=== PATIENT | male | born 1975 | race Caucasian/White ===

== ENCOUNTER 2019-03-17 16:19 | Emergency (ER) | payer BC ==
--- NOTE | 2019-03-17 16:30 | EDM.PDOC ---
ED HPI GENERAL MEDICAL PROBLEM - General Stated Complaint: TOOTHACHE Time Seen by Provider: 03/17/19 16:29 Source of Information: Reports: Patient - History of Present Illness INITIAL COMMENTS - FREE TEXT/NARRATIVE: HISTORY AND PHYSICAL: History of present illness: [he has dental pain right lower jaw line near the high tooth consistent with dental abscess no fever nausea vomiting chills sweats no muffled voice drooling or trismus] Review of systems: As per history of present illness and below otherwise all systems reviewed and negative. Past medical history: As per history of present illness and as reviewed below otherwise noncontributory. Surgical history: As per history of present illness and as reviewed below otherwise noncontributory. Social history: No reported history of drug or alcohol abuse. Family history: As per history of present illness and as reviewed below otherwise noncontributory. Physical exam: HEENT: Atraumatic, normocephalic, pupils reactive, negative for conjunctival pallor or scleral icterus, mucous membranes moist, throat clear, neck supple, nontender, trachea midline. Abscess as per history of present illness Lungs: Clear to auscultation, breath sounds equal bilaterally, chest nontender. Heart: S1S2, regular, negative for clicks, rubs, or JVD. Abdomen: Soft, nondistended, nontender. Negative for masses or hepatosplenomegaly. Negative for costovertebral tenderness. Pelvis: Stable nontender. Genitourinary: Deferred. Rectal: Deferred. Extremities: Atraumatic, negative for cords or calf pain. Neurovascular unremarkable. Neuro: Awake, alert, oriented. Cranial nerves II through XII unremarkable. Cerebellum unremarkable. Motor and sensory unremarkable throughout. Exam nonfocal. Diagnostics: [: ] Therapeutics: [Little Dental balls Cleocin ] Impression: [ dental abscess ] Definitive disposition and diagnosis as appropriate pending reevaluation and review of above. Right Lower Oral/Mouth Pain Score (Numeric/FACES): 8 - Related Data Allergies Allergy/AdvReac Type Severity Reaction Status Date / Time Penicillins Allergy Swelling Verified 03/17/19 16:32 Home Meds: Home Meds . [No Known Home Meds] 03/17/19 [History] ED ROS GENERAL - Review of Systems Review Of Systems: See Below ED EXAM, GENERAL - Physical Exam Exam: See Below Course - Vital Signs Last Recorded V/S: Last Vital Signs Temp 97.6 F 03/17/19 16:29 Pulse 57 L 03/17/19 16:29 Resp 18 03/17/19 16:29 BP 124/77 03/17/19 16:29 Pulse Ox 95 03/17/19 16:29 - Orders/Labs/Meds Orders: Active Orders 24 hr Category Date Time Status Ketorolac [Toradol] Med 03/17/19 16:38 Once 60 mg IM ONETIME ONE Departure - Departure Time of Disposition: 16:40 Disposition: Home, Self-Care 01 Condition: Good Clinical Impression: Dental abscess - Discharge Information Referrals: PCP,Unknown [Primary Care Provider] - Additional Instructions: Follow-up with dentist as soon as possible Provided list of area dentists Medication as prescribed The following information is given to patients seen in the emergency department who are being discharged to home. This information is to outline your options for follow-up care. We provide all patients seen in our emergency department with a follow-up referral. The need for follow-up, as well as the timing and circumstances, are variable depending upon the specifics of your emergency department visit. If you don't have a primary care physician on staff, we will provide you with a referral. We always advise you to contact your personal physician following an emergency department visit to inform them of the circumstance of the visit and for follow-up with them and/or the need for any referrals to a consulting specialist. The emergency department will also refer you to a specialist when appropriate. This referral assures that you have the opportunity for follow-up care with a specialist. All of these measure are taken in an effort to provide you with optimal care, which includes your follow-up. Under all circumstances we always encourage you to contact your private physician who remains a resource for coordinating your care. When calling for follow-up care, please make the office aware that this follow-up is from your recent emergency room visit. If for any reason you are refused follow-up, please contact the [facility] emergency department at and asked to speak to the emergency department charge nurse. - My Orders Last 24 Hours: My Active Orders 03/17/19 16:38 Ketorolac [Toradol] 60 mg IM ONETIME ONE - Assessment/Plan Last 24 Hours: My Active Orders 03/17/19 16:38 Ketorolac [Toradol] 60 mg IM ONETIME ONE
[2019-03-17] MEDS ORDERED: Ketorolac 60 MG/2 ML SDV IM ONE (16:38)
[2019-03-17] MEDS ORDERED: Lidocaine 2% Viscous Solution 15 ML Cup PO ONE (16:42)
[2019-03-17] MEDS ORDERED: Benzocaine 20% Topical Spray UD MUCMEM ONE (16:42)
== END 2019-03-17 17:17 | disposition home or self-care (01) ==
LOC: MW.ED 16:19
DX: K04.7 Periapical abscess without sinus (principal); Z88.0 Allergy status to penicillin
CPT/HCPCS: 96372; 99283; A9270; J1885

== ENCOUNTER 2023-03-15 05:56 | Emergency (ER) | payer BC ==
[2023-03-15] MEDS ORDERED: Lidocaine 4% 1 each Patch TOP STA (06:04)
[2023-03-15] MEDS ORDERED: Ondansetron 4 MG Tab.DIS PO ONE (06:04)
[2023-03-15] MEDS ORDERED: Acetaminophen/HYDROcodone 325-5 MG Tab PO ONE (06:04)
== END 2023-03-15 07:14 | disposition home or self-care (01) ==
LOC: MW.ED 05:56
DX: S20.221A Contusion of right back wall of thorax, initial encounter (principal); Z88.0 Allergy status to penicillin; W18.2XXA Fall in (into) shower or empty bathtub, initial encounter; Y92.002 Bathroom of unspecified non-institutional (private) residence as the place of occurrence of the external cause
CPT/HCPCS: 71101; 99283; A9270